=== PATIENT | female | born 1950 | race Caucasian/White ===

== ENCOUNTER 2019-07-23 07:04 | Day surgery (SDC) | payer BC ==
[~2019-07-23 07:04] MED LIST: Buffered Lidocaine 1% SYRIN* 1 ML/SYRINGE INTRADERM ONE; DiMENhydriNATE IV* 50 MG/ML VIAL IV PUSH ONE; Famotidine IV* 10 MG/ML 2 ML (20 mg) IV ONE; Lactated Ringers 1000 ML Bag* 1,000 ML IV SCH
[2019-07-23] MEDS ORDERED: Dexamethasone IV* 4 MG/ML 1 ML (4 MG) ONE (08:15)
[2019-07-23] MEDS ORDERED: Famotidine IV* 10 MG/ML 2 ML (20 mg) ONE (08:15)
[2019-07-23] MEDS ORDERED: ceFAZolin 2 GM in NS PREMIX(*) 2 GM/100 ML BAG IVPB ONE (08:15)
[2019-07-23] MEDS ORDERED: HYDROcodone/ACETAMIN 5-325 MG* 1 TAB PO PRN (08:30)
[2019-07-23] MEDS ORDERED: Scopolamine 1.5 mg* PATCH TRANSDERM PRN (08:30)
[2019-07-23] MEDS ORDERED: oxyCODONE/Acetamin 5/325 MG* TAB PO PRN (08:30)
[2019-07-23] MEDS ORDERED: PROCHLORPERAZINE INJ 5 MG/ML 2 ML VIAL IV PRN (08:30)
[2019-07-23] MEDS ORDERED: Naloxone* 0.4 MG/ML 1 ML VIAL IV PRN (08:30)
[2019-07-23] MEDS ORDERED: fentaNYL* 50 MCG/ML 2 ML VIAL (100 MCG VIAL) IV PRN (08:30)
[2019-07-23] MEDS ORDERED: DiMENhydriNATE IV* 50 MG/ML VIAL ONE (08:31)
[2019-07-23] MEDS ORDERED: Lidocaine 1% w EPI 1:200,000* SDV 30 ML VIAL ONE (09:34)
[2019-07-23] MEDS ORDERED: EPINEPHRINE 1 MG/ML 1 ML VIAL ONE (09:34)
[2019-07-23] MEDS ORDERED: Bupivacaine 0.5% W/EPI SDV* 30 ML VIAL ONE (09:34)
[2019-07-23] MEDS ORDERED: Bupivacaine 0.25% SDV PF* 10 ML VIAL INJ ONE (09:35)
[2019-07-23] MEDS ORDERED: fentaNYL* 50 MCG/ML 2 ML VIAL (100 MCG VIAL) ONE ×2 (09:47→12:37)
[2019-07-23] MEDS ORDERED: Midazolam* 1 MG/ML 5 ML VIAL (5 MG) ONE (09:47)
[2019-07-23] MEDS ORDERED: Propofol* 10 MG/ML 20 ML BTL ONE (09:51)
[2019-07-23] MEDS ORDERED: Succinylcholine* 20 MG/ML 10 ML VIAL ONE (09:51)
[2019-07-23] MEDS ORDERED: Lidocaine 2% PF * 5 ML VIAL ONE (09:51)
[2019-07-23] MEDS ORDERED: ROPIVACAINE 5 MG/ML 30 ML BTL (0.5%) ONE (09:53)
[2019-07-23] MEDS ORDERED: EPHEDrine (Pressors)* 50 MG/ML VIAL ONE (10:36)
[2019-07-23] MEDS ORDERED: Phenylephrine 10 MG/ML VIAL* 1 ML VIAL ONE (11:24)
[2019-07-23] MEDS ORDERED: Ondansetron INJ* 2 MG/ML VIAL ONE (12:38)
[2019-07-23] MEDS ORDERED: oxyCODONE/Acetamin 5/325 MG* TAB ONE (13:56)
[2019-07-23] MEDS ORDERED: BSS OPTH.SOL* BTL LEFT EYE PRN (15:28)
[2019-07-23 16:07] VITALS: BP 137/63
--- NOTE | 2019-07-24 23:15 | OP ---
OPERATIVE NOTE: DATE OF OPERATION: 07/23/19 DATE OF : 54 SURGEON: Fortunato Lemons MD [employer] COUNSELOR: HIRAM Alcantara A physician hair assistant was required for the length of the procedure for assistance with patient positi oning, instrumentation, retraction, and closure. ANESTHESIOLOGIST: Dr. Sherry James. ANESTHESIA: General anesthesia, regional interscalene block anesthesia on the left, local anesthesia on the right, approximately 5 cc of Marcaine 0.25% with epinephrine placed just proximal to the carp al tunnel incision site, right. PRE-OP DIAGNOSES: 1. Left shoulder acromioclavicular joint osteoarthritis, severe. 2. Left shoulder subacromial impingement and bursitis. 3. Left shoulder rotator cuff tendinitis, possible tear. 4. Left shoulder proximal biceps tendinosis. 5. Right ring finger stenosing tenosynovitis, trigger finger. 6. Right carpal tunnel syndrome. POST-OP DIAGNOSES: 1. Left shoulder acromioclavicular joint osteoarthritis, severe. 2. Left shoulder subacromial impingement and bursitis. 3. Left shoulder rotator cuff tendon tear, full thickness, supraspinatus, accompanied by much rotato r cuff tendinopathy. 4. Left shoulder proximal biceps tendinosis. 5. Right ring finger stenosing tenosynovitis, trigger finger. 6. Right carpal tunnel syndrome. OPERATIVE PROCEDURES: 1. Left shoulder arthroscopic rotator cuff tendon repair, with single row suture anchor along with R egeneten biologic patch. 2. Left shoulder arthroscopic subacromial decompression. 3. Left shoulder arthroscopic distal clavicle resection. 4. Left shoulder arthroscopic debridement including debridement of superior labrum and release of lo ng head biceps tendon. 5. Right open carpal tunnel release. 6. Trigger finger release, right ring finger. ANTIBIOTICS: Ancef 2 g IV. IV FLUIDS: See anesthesia note. SKIN TO SKIN TIME: Eighteen minutes for the right side surgery, carpal tunnel release and trigger fi nger release. 84 minutes for the left shoulder component of the procedure, skin to skin. Note that 2 separate preps and drapes were required for the surgery and the positioning was different for each component of the surgical procedure. For simplicity sake, I included all of these in the same operat luz note. TOURNIQUET TIME: A tourniquet was used on the right upper extremity, for approximately 18 minutes, r ight upper arm tourniquet set to 250 mmHg. SPECIMEN: None. IMPLANTS: Left shoulder, I had placed a corkscrew 5.5 mm Arthrex suture anchor, double loaded with s uture tape also a [employer] Regeneten biological patch size medium. ESTIMATED BLOOD LOSS: Minimal. COMPLICATIONS: None. INDICATIONS FOR PROCEDURE: The patient is a 69-year-old woman well known to me, right hand dominant, who has been treated for quite sometime by me for left shoulder and right ring finger complaints, bu t added more recently some right carpal tunnel complaints. For the left shoulder, the patient initially saw me because of a painful ganglion cyst about the left shoulder AC joint. Shoulder has continued to be bothersome. On both the left shoulder and the right hand and ring finger, the patient failed to respond to a full spectrum of nonoperative interventions and opted for surgery. Discussed risks and potential complications of all components of the surgical procedure and the patie nt wanted to move forward. We spoke about biceps tendon treatment, release or tenodesis and the broderick ent decided on a biceps release if treatment was required. DESCRIPTION OF PROCEDURE: In preoperative holding, the patient underwent a written consent. Operati ve extremity was marked in the preoperative holding. The patient underwent a left regional interscal jm nerve block by Dr. James in preoperative holding. The patient was brought back to the operating room and placed on operating room table. The patient w as sedated and intubated. I first proceeded forward with the patient supine, performing the right wrist and hand procedures. H and table was applied to the table. Tourniquet nonsterile was applied to the right upper arm. [facility] was prepped and draped. A formal surgical time out performed. Esmarch was appli ed and the tourniquet was elevated. A right wrist carpal tunnel skin incision was made. Dissected d own to longitudinal fascia. Incised this longitudinally. Identified transverse carpal ligaments. I cleared off its superficial surface. Released it with knife centrally followed by scissors and knif e distally and then scissors proximally. The cut ends of the transverse carpal ligament retracted sig nificantly radial and ulnar. Fat was visualized distally. A full release to distal forearm fascia p roximally. This wound was irrigated and the skin was closed with horizontal mattress stitches using nylon 4-0 suture. We next performed the right ring finger trigger finger release. We made a longitu dinal skin incision. Dissected down to the flexor tendon. Identified the A1 ethel. Appropriate re tractors placed. Incised the A1 ethel and a little bit of the most proximal aspect of the A2 ethel. Also released the A0 ethel. I retracted the flexor tendons from the wound with a Ragnell. Full r elease performed. Irrigation of wound and closure of the skin incision with horizontal mattress stit ches using nylon 4-0 suture. I placed 45 cm of local anesthetic, Marcaine 0.25% with epinephrine jus t proximal to the carpal tunnel incision as well as in the distal forearm adjacent to the median nerv e. Applied over both incision sites a Xeroform, 4x4s, Webril, and Coban. We next took down all of the drapes for the right upper extremity and removed the tourniquet. We nex t positioned the patient in the lateral decubitus position with the left shoulder up. Axillary roll placed. Jefferson bag hardened. All bony prominences padded. Left shoulder placed in 15 pounds of longi tudinal traction with the appropriate amount of flexion and abduction of the left shoulder. Left merritt ulder was prepped and draped. Surgical time out performed. I next placed a spinal needle into the g lenohumeral joint from posterior and infused 30 cc of normal saline. I established a posterior gleno humeral joint portal under direct visualization. Starting my diagnostic arthroscopy, there were some clear articular cartilage injury to the glenohume ral joint on both sides, anywhere from grade 1 to grade 3 changes, worse on the glenoid compared to t he humeral head. Clearly some element of supraspinatus tearing evident. Difficult to discern how thi ck this was from superior to inferior. Established an anterior glenohumeral joint portal under direc t visualization. Tearing of the superior labrum and tendinosis of the biceps tendon present. Cut bi ceps near its origin with scissors. I debrided the superior labrum. I debrided some roughened edges of articular cartilage on the glenoi d. Next moved to the subacromial space. I created lateral and then posterolateral portals. Debrided bu rsitic tissue with arthroscopic shaver. A significant tendinosis of the rotator cuff noted. I place d a spinal needle for visualization of the area of the undersurface concern. I evaluated the rotator cuff. Further anterior from where I placed the spinal needle there was a dinora ar area of significant damage to the rotator cuff. It was clearly full thickness as the probe went r ight through the tendon in that location. I was surprised it had tendinotic and minced meat likely beth rrounding rotator cuff tendon tissue was. I decided that even with the patient's age that a rotator cuff repair, formal was necessary given the full thickness nature of this tear. Rotator cuff with grasper identified some excursion feasible. Initially, I briefly considered just a side-to- side repair, but ultimately decided at some tendon ti ssue had clearly torn off the foot print and retracted so that a proper suture anchor repair was requ ired. I next performed subacromial decompression, flattening out of the undersurface of the acromion with a n arthroscopic bur. Next proceeded to a rotator cuff repair. I debrided some visible footprint using a cautery device an d then an arthroscopic bur. I then through a superolateral poke hole placed a cork screw suture anch or. I then using an antegrade scorpion suture passer passed 1 horizontal mattress and 1 simple stitc h at the tear site. This was an interesting configuration of repair. I chose this because I thought there was a certain split component of this tear. I placed my horizontal mattress stitch into the medial tendon that had retracted from just medial to the foot print. I then placed 1 arm each of the second pair on either side of these within the tendo n. One was placed anterior and the other strand posterior. I did this because this was a rather mery gitudinal tear in the medial or lateral direction, certainly not a crescent shaped tear. I tied the horizontal mattress stitch first, which nicely brought tendon the the bone. I then tied t he simple stitch. This really nicely brought tendon to bone and after the sutures were cut, it was v doris difficult to tell that anything was abnormal about the tendon besides the sutures being present a nd there is being some inflamed tendon. This really made the tendon appear anatomic otherwise, nicel y closed up tear. Given the overall very shredded appearance of the tendon, I thought that more than a suture anchor re pair made sense for this patient as well as the undersurface tearing that I had noted with my spinal needle seem to be in further posterior from the area that I repaired with my suture anchor. For this reason, I thought a biologic patch would be worthwhile to improve healing. This is especially the c ase in an older 69-year-old patient. Therefore, I placed a Regeneten medium patch through the lateral portal and held it in place with a number of PLLA carie. A patch was well placed and was stable. I next moved to the AC joint. I removed synovitic tissue with a cautery device and removed 8 mm of d istal end of the clavicle with an arthroscopic bur. Instruments and fluid were removed from the suba cromial space. Skin incisions were closed with [id number] and 12 stitches using nylon 3-0 sutur e. Xeroform, 4x4s, ABDs, foam tape. The left shoulder was placed in an UltraSling. The contralater al right shoulder was placed in a simple sling. The patient was awakened, extubated and transferred to the PACU. DISPOSITION: The patient will not start physical therapy for the time being given the suture anchor nature of repair of the rotator cuff. She will remove all dressing at 3 days postoperatively and the n, between showers, cover up all surgical incision sites with a dry sterile dressing until postoperat luz day 7. She will see me in approximately 10 to 14 days postoperatively. The left shoulder will b e in the UltraSling and abduction pillow at all times, day and night, for 6 weeks. The contralateral right shoulder will be in a simple sling just for several hours or days to allow some elevation of t he right upper extremity for comfort only. The right sling is certainly not required. The patient w as given [place] to take as needed for pain control. The patient will follow up with me in 10 to 14 da ys postoperatively. [id number]/[facility] #: [id number]
[2019-07-26] MEDS ORDERED: Scopolamine PATCH Remove* 1 NOTE MISC PATCH OFF ONE (08:31)
== END 2019-07-23 16:14 | disposition home or self-care (01) ==
LOC: OR 07:04
PROVIDERS: ATTEND Orthopaedic Surgery
DX: S46.012D Strain of muscle(s) and tendon(s) of the rotator cuff of left shoulder, subsequent encounter (principal); M75.22 Bicipital tendinitis, left shoulder; M19.012 Primary osteoarthritis, left shoulder; M75.42 Impingement syndrome of left shoulder; M75.52 Bursitis of left shoulder; G56.01 Carpal tunnel syndrome, right upper limb; E11.9 Type 2 diabetes mellitus without complications; G89.18 Other acute postprocedural pain; Z79.84 Long term (current) use of oral hypoglycemic drugs; M65.341 Trigger finger, right ring finger; Z87.891 Personal history of nicotine dependence; I25.2 Old myocardial infarction; Z95.5 Presence of coronary angioplasty implant and graft; K21.9 Gastro-esophageal reflux disease without esophagitis; X58.XXXD Exposure to other specified factors, subsequent encounter; Y92.9 Unspecified place or not applicable
CPT/HCPCS: A9270-GY; C1713; J0330; J0690; J1100; J1240; J2001; J2250; J2405; J2704; J2795; J3010; J3490